=== PATIENT | male | born 1995 | race Caucasian/White ===

== ENCOUNTER 2016-12-28 21:28 | Emergency (ER) | payer BC ==
[2016-12-28 21:37] VITALS: BP 159/97
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
[2016-12-28] MEDS ORDERED: Cyclobenzaprine TAB* 10 MG PO ONE (22:01)
[2016-12-28] MEDS ORDERED: HYDROcodone/ACETAMIN 5-325 MG* 1 TAB PO ONE (22:02)
== END 2016-12-28 22:19 | disposition home or self-care (01) ==
LOC: UCEAST 21:28
DX: M26.609 Unspecified temporomandibular joint disorder, unspecified side (principal); K02.9 Dental caries, unspecified; Z88.1 Allergy status to other antibiotic agents; I10 Essential (primary) hypertension
CPT/HCPCS: 99213; A9270-GY; G0463

== ENCOUNTER 2016-12-31 00:53 | Emergency (ER) | payer BC ==
[2016-12-31] MEDS ORDERED: Penicillin VK TAB* 250 MG PO ONE (01:11)
[2016-12-31] MEDS ORDERED: Ibuprofen TAB* 800 MG PO ONE (01:11)
--- NOTE | 2016-12-31 01:23 | ED ---
Chavez Carpio Anna, scribed for David Batista MD on 12/31/16 at 0113 . Throat Pain/Nasal Congestion - HPI Summary HPI Summary: Patient is a 21 y/o male coming to [facility] presenting with constant left jaw pain that began three days ago. The pain radiates through his tongue, which is different from the pain when seen 12/28/2016 at [facility]. He reports numbness around lips and chin. The pain is exacerbated by swallowing. The patient has taken Tylenol tonight. Patient was seen at [facility] for the same symptoms three days ago, where he was diagnosed with TMJ and dental caries/dental pain and prescribed Flexeril, Lorcet, and Naproxen. He stopped taking this medication when he felt he had a reaction to the Naproxen. 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 - Accompanied by parents - Allergies/Home Medications Allergies/Adverse Reactions: Allergies Allergy/AdvReac Type Severity Reaction Status Date / Time Cefaclor [From [facility]] Allergy Intermediate Rash Verified 12/28/16 21:37 PMH/Surg Hx/FS Hx/Imm Hx Endocrine/Hematology History: Denies: Hx Anticoagulant Therapy, Hx Diabetes, Hx Thyroid Disease Cardiovascular History: Reports: Hx Hypertension Denies: Hx Congestive Heart Failure, Hx Deep Vein Thrombosis, Hx Myocardial Infarction, Hx Pacemaker/ICD Respiratory History: Reports: Hx Asthma - as a child Denies: Hx Chronic Obstructive Pulmonary Disease (COPD), Hx Lung Cancer, Hx Pneumonia, Hx Pulmonary Embolism GI History: Denies: Hx Gall Bladder Disease, Hx Gastrointestinal Bleed, Hx Ulcer, Hx Urosepsis, Other GI Disorders History: Denies: Hx Kidney Stones, Hx Renal Disease Neurological History: Denies: Hx Dementia, Hx Migraine, Hx Seizures, Hx Transient Ischemic Attacks (TIA) Psychiatric History: Reports: Hx Anxiety - He does not take medication for it. Denies: Hx Depression, Hx Schizophrenia, Hx Bipolar Disorder Infectious Disease History: No Infectious Disease History: Denies: History Other Infectious Disease, Traveled Outside the [place] in Last 30 Days - Family History Known Family History: Positive: Hypertension Negative: Cardiac Disease - Social History Alcohol Use: None Substance Use Type: Reports: None Hx Tobacco Use: No Smoking Status (MU): Never Smoked Tobacco Review of Systems Positive: Arthralgia Positive: Numbness All Other Systems Reviewed And Are Negative: Yes Physical Exam Triage Information Reviewed: Yes Vital Signs On Initial Exam: Initial Vitals Temp Pulse Resp BP Pulse Ox 97.8 F 87 16 161/98 100 12/31/16 00:54 12/31/16 00:54 12/31/16 00:54 12/31/16 00:54 12/31/16 00:54 Vital Signs Reviewed: Yes Appearance: Positive: Well-Appearing, No Pain Distress Skin: Positive: Warm Head/Face: Positive: Normal Head/Face Inspection Eyes: Positive: DIANNA ENT: Positive: Hearing grossly normal Dental: Positive: Gross Decay/Caries @ Neck: Positive: Supple Respiratory/Lung Sounds: Positive: Breath Sounds Present Cardiovascular: Positive: RRR Neurological: Positive: Alert, Oriented to Person Place, Time Diagnostics - Vital Signs Vital Signs Temp Pulse Resp BP Pulse Ox 12/31/16 00:54 97.8 F 87 16 161/98 100 - Laboratory Lab Statement: Any lab studies that have been ordered have been reviewed, and results considered in the medical decision making process. Re-Evaluation - Re-Evaluation First Eval Comment: pt advised to continue present tx and f/u with dentist EENT Course/Dx - Course Assessment/Plan: Patient is a 21 y/o male coming to [facility] presenting with constant left jaw pain that began three days ago. The pain radiates through his tongue, which is different from the pain when seen 12/28/2016 at [facility]. He reports numbness around lips and chin. The pain is exacerbated by swallowing. The patient has taken Tylenol tonight. Patient was seen at [facility] for the same symptoms three days ago, where he was diagnosed with TMJ and dental caries/ dental pain and prescribed Flexeril, Lorcet, and Naproxen. He stopped taking this medication when he felt he had a reaction to the Naproxen. Patient was recommended to take ibuprofen as needed for the pain and to continue taking other medications as prescribed at [facility]. Abx prescribed. Patient will be discharged home with the recommendation to follow up with a dentist. - Diagnoses Provider Diagnoses: Pain, dental Discharge - Discharge Plan Condition: Stable Disposition: HOME Prescriptions: Ibuprofen TAB* [Motrin TAB* 600 MG] 600 mg PO Q6H #30 tab Penicillin VK TAB* [Penicillin VK 250 mg Tab*] 250 mg PO QID #20 tab Patient Education Materials: Penicillin V (By mouth), Ibuprofen (By mouth), Toothache (ED) Referrals: Cristino Markham DO [Primary Care Provider] - Rickey Campoverde DMD [Doctor of Dental Medicine] - Additional Instructions: Follow up with dentist within 48 hours. Return to the emergency department for changing or worsening symptoms. The documentation as recorded by the Chavez armstrong Anna accurately reflects the service I personally performed and the decisions made by me, David Batista MD.
[2016-12-31 01:36] VITALS: BP 156/89
== END 2016-12-31 01:35 | disposition home or self-care (01) ==
LOC: ED 00:53
DX: K08.89 Other specified disorders of teeth and supporting structures (principal)
CPT/HCPCS: 99282; A9270-GY

== ENCOUNTER 2017-01-02 20:02 | Inpatient (IN) | payer BC ==
[2017-01-02] MEDS ORDERED: Ketorolac INJ* 30 MG/ML 1 ML VIAL IV ONE (21:44)
[2017-01-02] MEDS ORDERED: NS 0.9% 1000 ML* 1,000 ML IV ONE (21:44)
[2017-01-02 22:31] LABS: Hematocrit 48 % (42-52); Hemoglobin 16.4 g/dl (14.0-18.0); Mean Corpuscular HGB Conc 35 g/dl (31-36); Mean Corpuscular Hemoglobin 30 pg (27-31); Mean Corpuscular Volume 87 fL (80-94); Mean Platelet Volume 8 um3 (7.4-10.4); Red Blood Count 5.46 10^6/ul (4.0-5.4); Red Cell Distribution Width 13 % (10.5-15); White Blood Count 16.5 10^3/ul (3.5-10.8)
[2017-01-02 22:47] LABS: Albumin 4.4 g/dL (3.2-5.2); BUN/Creatinine Ratio 7.5 (8-20); C Reactive Protein 83.34 mg/L (< 5.00); EGFR African American 129.5 (>60); EGFR Non-African American 100.7 (>60); Globulin 3.5 g/dL (2-4); Potassium 4.3 mmol/L (3.5-5.0); Total Bilirubin 1.4 mg/dL (0.2-1.0); Total Protein 7.9 g/dL (6.4-8.9)
[2017-01-02] MEDS ORDERED: Iohexol 300* (CONTRAST) 10 ML SDV IV ONE (23:03)
--- NOTE | 2017-01-02 23:25 | ED ---
Throat Pain/Nasal Congestion - HPI Summary HPI Summary: Patient presents with left sided jaw pain for 5 days and facial swelling that began yesterday. He has had a cracked wisdom tooth for over a year without issue. He has been evaluated at this ED and [facility] with diagnoses of TMJ. He saw his dentist yesterday who gave him antibiotics and pain medication with minimal relief. He presents today with swelling that he feels has progressed into his chest, and pain with swallowing. He has a subjective fever. He has not noticed drainage from the area. No neck stiffness or ear pain. - History of Current Complaint Chief Complaint: EDDentalPain Time Seen by Provider: 01/02/17 21:03 Hx Obtained From: Patient, Family/French Drawer Onset/Duration: Gradual Onset, Lasting Days, Worse Since - yesterday Severity: Severe Associated Signs And Symptoms: Positive: Dysphagia Cough: None - Allergies/Home Medications Allergies/Adverse Reactions: Allergies Allergy/AdvReac Type Severity Reaction Status Date / Time Cefaclor [From Ceclor] Allergy Intermediate Rash Verified 01/02/17 20:15 PMH/Surg Hx/FS Hx/Imm Hx Endocrine/Hematology History: Denies: Hx Anticoagulant Therapy, Hx Diabetes, Hx Thyroid Disease Cardiovascular History: Reports: Hx Hypertension Denies: Hx Congestive Heart Failure, Hx Deep Vein Thrombosis, Hx Myocardial Infarction, Hx Pacemaker/ICD Respiratory History: Reports: Hx Asthma - as a child Denies: Hx Chronic Obstructive Pulmonary Disease (COPD), Hx Lung Cancer, Hx Pneumonia, Hx Pulmonary Embolism GI History: Denies: Hx Gall Bladder Disease, Hx Gastrointestinal Bleed, Hx Ulcer, Hx Urosepsis, Other GI Disorders History: Denies: Hx Kidney Stones, Hx Renal Disease Neurological History: Denies: Hx Dementia, Hx Migraine, Hx Seizures, Hx Transient Ischemic Attacks (TIA) Psychiatric History: Reports: Hx Anxiety - He does not take medication for it. Denies: Hx Depression, Hx Schizophrenia, Hx Bipolar Disorder Infectious Disease History: No Infectious Disease History: Denies: History Other Infectious Disease, Traveled Outside the [place] in Last 30 Days - Family History Known Family History: Positive: Hypertension Negative: Cardiac Disease - Social History Occupation: Employed Full-time Lives: With Family Alcohol Use: None Substance Use Type: Reports: None Hx Tobacco Use: No Smoking Status (MU): Never Smoked Tobacco Review of Systems Positive: Fever, Chills Positive: Sore Throat. Negative: Ear Ache, Nasal Discharge Negative: Cough Negative: Bruising Negative: Headache, Weakness All Other Systems Reviewed And Are Negative: Yes Physical Exam Triage Information Reviewed: Yes Vital Signs On Initial Exam: Initial Vitals Temp Pulse Resp BP Pulse Ox 99.3 F 124 18 161/104 98 01/02/17 20:05 01/02/17 20:05 01/02/17 20:05 01/02/17 20:05 01/02/17 20:05 Vital Signs Reviewed: Yes Appearance: Positive: Well-Appearing, Pain Distress, Obese Skin: Positive: Warm, Skin Color Reflects Adequate Perfusion, Dry, Soft Head/Face: Positive: Normal Head/Face Inspection Eyes: Positive: EOMI, DIANNA, Conjunctiva Clear ENT: Positive: Hearing grossly normal, Pharynx normal, Trismus - mild, Dental tenderness - left upper wisdom tooth. Negative: Pharyngeal erythema, Tonsillar swelling, Tonsillar exudate, Muffled/hoarse voice Dental: Positive: Percussion Tenderness @, Dental Fracture @, Cervical Lymphadenopathy - body habitus is limiting; obvious left sided facial and throat swelling Neck: Positive: Supple, Tenderness @, Enlarged Nodes @ Respiratory/Lung Sounds: Positive: Clear to Auscultation, Breath Sounds Present Cardiovascular: Positive: Tachycardia Musculoskeletal: Negative: Edema Left, Edema Right Neurological: Positive: Sensory/Motor Intact, Alert, Oriented to Person Place, Time, NV Bundle Intact Distally Psychiatric: Positive: Affect/Mood Appropriate AVPU Assessment: Alert Diagnostics - Vital Signs Vital Signs Temp Pulse Resp BP Pulse Ox 01/02/17 20:05 99.3 F 124 18 161/104 98 - Laboratory Lab Results: Lab Results 01/02/17 01/02/17 Range/Units 22:25 22:25 WBC 16.5 H (3.5-10.8) 10^3/ul RBC 5.46 H (4.0-5.4) 10^6/ul Hgb 16.4 (14.0-18.0) g/dl Hct 48 (42-52) % MCV 87 (80-94) fL MCH 30 (27-31) pg MCHC 35 (31-36) g/dl RDW 13 (10.5-15) % Plt Count 273 (150-450) 10^3/ul MPV 8 (7.4-10.4) um3 Neut % (Auto) 70.8 (38-83) % Lymph % (Auto) 18.6 L (25-47) % [place] % (Auto) 8.3 (1-9) % Eos % (Auto) 1.6 (0-6) % Baso % (Auto) 0.7 (0-2) % Absolute Neuts (auto) 11.7 H (1.5-7.7) 10^3/ul Absolute Lymphs (auto) 3.1 (1.0-4.8) 10^3/ul Absolute Monos (auto) 1.4 H (0-0.8) 10^3/ul Absolute Eos (auto) 0.3 (0-0.6) 10^3/ul Absolute Basos (auto) 0.1 (0-0.2) 10^3/ul Absolute Nucleated RBC 0 10^3/ul Nucleated RBC % 0 Sodium 136 (133-145) mmol/L Potassium 4.3 (3.5-5.0) mmol/L Chloride 101 (101-111) mmol/L Carbon Dioxide 25 (22-32) mmol/L Anion Gap 10 (2-11) mmol/L BUN 7 (6-24) mg/dL Creatinine 0.93 (0.67-1.17) mg/dL Est GFR ( Amer) 129.5 (>60) Est GFR (Non-Af Amer) 100.7 (>60) BUN/Creatinine Ratio 7.5 L (8-20) Glucose 112 H (70-100) mg/dL Calcium 10.0 (8.6-10.3) mg/dL Total Bilirubin 1.40 H (0.2-1.0) mg/dL AST 19 (13-39) U/L ALT 52 (7-52) U/L Alkaline Phosphatase 41 (34-104) U/L C-Reactive Protein 83.34 H (< 5.00) mg/L Total Protein 7.9 (6.4-8.9) g/dL Albumin 4.4 (3.2-5.2) g/dL Globulin 3.5 (2-4) g/dL Albumin/Globulin Ratio 1.3 (1-3) Result Diagrams: 01/02/17 22:25 01/02/17 22:25 Lab Statement: Any lab studies that have been ordered have been reviewed, and results considered in the medical decision making process. - CT No standard instances CT Interpretation: Positive (See Comments) CT Interpretation Completed By: Radiologist - No abscess noted: extensive edema in the anterior neck to the level of the cricoid, medially to the left parapharyngeal space, to the left hypopharynx and aryepiglottic fold and base of left tongue. EENT Course/Dx - Course Course Of Treatment: After discussion with ENT and hospital medicine, the patient will be admitted to the ICU for observation and IV antibiotics. The patients childhood rash with cefaclor was discussed with Dr. Seymour and the patient was okayed to receive penicillin due to low cross reactivity. - Differential Diagnoses Differential Diagnoses: Cellulitis, Dental Abscess, Dental Caries, Fractured Tooth, Lg's Angina, Mandibular/Maxillary Trauma, Odontogenic Pain, Periodontic Abscess, Periodontic Disease, Pharyngitis, Post-Extraction Pain, Tonsilitis - Diagnoses Provider Diagnoses: Swelling of throat, Cellulitis - Provider Notifications Discussed Care of Patient with: Dr. Valdez, ENT; Dr. Seymour, hospital medicine. Instructed by Provider To: Admit As Inpatient Discharge - Discharge Plan Condition: Stable Disposition: ADMITTED TO [facility]
[2017-01-02] MEDS ORDERED: Dexamethasone IV* 4 MG/ML 1 ML (4 MG) IV SLOW PU ONE (23:55)
[2017-01-02] MEDS ORDERED: Clindamycin 900 MG IVPREMIX(* 900 MG/50 ML SDV IV ONE (23:55)
[2017-01-03] MEDS ORDERED: HYDROmorphone* 1 MG/ML 1 ML SYR IV SLOW PU ONE (00:40)
--- NOTE | 2017-01-03 00:44 | HP ---
H&P (Free Text) History and Physical: PCP: Gabe Markham MD Date/Time of Evaluation: 01/03/2017 0030 CC: throat pain HPI: Mr Jose Enrique Martines is a 21YO morbidly obese male reporting onset of L inferior jaw pain 5 days ago progressing to pain 2-3 days ago and including subjective F/C yesterday. He was seen in [facility] [place] and prescribed ABX, followed up with dental who changed his ABX, and despite this has continued to worsen to the point today he was starting to have difficulty swallowing prompting him to return. He is able to manage his saliva without difficulty and is having no airway complaint.CT neck soft tissue reveals extensive inflammatory change of the deep space of the neck without abscess formation. PMedHx HTN anxiety PVCs/palpitations Allergies Cefaclor [From Ceclor] Allergy (Intermediate, Verified 01/02/17 20:15) Rash Ambulatory Orders Nursing to reconcile. PSurgHx denies SocHx: no tobacco, alcohol, or recreational drugs; unemployed; full code status FamHx: positive HTN ROS: as above, otherwise reviewed and all were negative Constitutional: NAD, normally developed, morbidly obese white male vitals: Vital Signs Temp 37.4 C 01/02/17 20:05 Pulse 124 01/02/17 20:05 Resp 18 01/03/17 00:53 BP 161/104 01/02/17 20:05 Pulse Ox 98 01/02/17 20:05 Intake & Output 01/02/17 01/02/17 01/03/17 11:59 23:59 11:59 Weight 149.685 kg HEENM: atraumatic; sclera/conjunctiva: non-icteric/clear; hearing: clinically intact; oropharynx: clear, no saida-tonsillar swelling or tenderness, positive poor dentition Neck: soft tissue: tenderness and induration of the L submandibular area tracking into the proximal neck & anterior chest; thyroid: unable to fully examine 2nd tenderness & induration Pulmonary: clear to auscultation bilaterally, good aeration, no accessory muscle use CV: RR/RR, normal S1S2, no carotid bruit, no jugular venous distention, 2+ B DP/ PT, no edema Abdominal: soft, non-distended, non-tender, no rebound/guarding/rigidity, normoactive bowel sounds, no hepatosplenomegaly or masses, no costovertebral angle tenderness Musculoskeletal: general: grossly intact; gait: stable Integumental: normal appearance and texture Psychiatric orientation: AA&O to PPS affect: calm mood: cooperative eye contact: fair content: reliable responses: timely insight: good Testing: Lab Results 01/02/17 01/02/17 Range/Units 22:25 22:25 WBC 16.5 H (3.5-10.8) 10^3/ul RBC 5.46 H (4.0-5.4) 10^6/ul Hgb 16.4 (14.0-18.0) g/dl Hct 48 (42-52) % MCV 87 (80-94) fL MCH 30 (27-31) pg MCHC 35 (31-36) g/dl RDW 13 (10.5-15) % Plt Count 273 (150-450) 10^3/ul MPV 8 (7.4-10.4) um3 Neut % (Auto) 70.8 (38-83) % Lymph % (Auto) 18.6 L (25-47) % [place] % (Auto) 8.3 (1-9) % Eos % (Auto) 1.6 (0-6) % Baso % (Auto) 0.7 (0-2) % Absolute Neuts (auto) 11.7 H (1.5-7.7) 10^3/ul Absolute Lymphs (auto) 3.1 (1.0-4.8) 10^3/ul Absolute Monos (auto) 1.4 H (0-0.8) 10^3/ul Absolute Eos (auto) 0.3 (0-0.6) 10^3/ul Absolute Basos (auto) 0.1 (0-0.2) 10^3/ul Absolute Nucleated RBC 0 10^3/ul Nucleated RBC % 0 Sodium 136 (133-145) mmol/L Potassium 4.3 (3.5-5.0) mmol/L Chloride 101 (101-111) mmol/L Carbon Dioxide 25 (22-32) mmol/L Anion Gap 10 (2-11) mmol/L BUN 7 (6-24) mg/dL Creatinine 0.93 (0.67-1.17) mg/dL Est GFR ( Amer) 129.5 (>60) Est GFR (Non-Af Amer) 100.7 (>60) BUN/Creatinine Ratio 7.5 L (8-20) Glucose 112 H (70-100) mg/dL Calcium 10.0 (8.6-10.3) mg/dL Total Bilirubin 1.40 H (0.2-1.0) mg/dL AST 19 (13-39) U/L ALT 52 (7-52) U/L Alkaline Phosphatase 41 (34-104) U/L C-Reactive Protein 83.34 H (< 5.00) mg/L Total Protein 7.9 (6.4-8.9) g/dL Albumin 4.4 (3.2-5.2) g/dL Globulin 3.5 (2-4) g/dL Albumin/Globulin Ratio 1.3 (1-3) CT soft tissue neck, personally reviewed: FINDINGS: There is infiltration of the fat of the fat of the left submandibular region as well as thickening of the left platysma muscle. This most likely represents cellulitis. The inflammation extends inferiorly in the anterior neck to approximately the level of the cricoid cartilage of the anterior neck. The inflammation also extends medially to involve the left parapharyngeal space and the edema extends along the left hypopharynx and left aryepiglottic fold. There is also thickening of the base of the tongue. Left submandibular lymphadenopathy. The cervical airway is patent. Thyroid gland is normal. Parotid and submandibular glands are unremarkable. Impression: 21M presenting with neck deep tissue infection DIAGNOSIS & PLAN Primary neck deep tissue infection : IV clindamycin & PCN G : IVFs : IV dexamethasone 16mg x1 given in ED : pain control : NPO : ENT aware, not formally consulted : supplemental oxygen : ICU for close monitoring of airway : supportive care Secondary HTN : review meds once reconciled Admission Rational: inpatient for neck deep tissue infection requiring ICU monitoring, IV ABX, & IV steroids DVTp: SCDs Code Status: full
[2017-01-03] MEDS ORDERED: Ondansetron INJ* 2 MG/ML VIAL IV PRN (00:48)
[2017-01-03] MEDS ORDERED: HYDROmorphone* 1 MG/ML 1 ML SYR IV PRN (00:48)
[2017-01-03] MEDS ORDERED: Melatonin (NF) 3 MG TAB PO PRN (00:48)
[2017-01-03] MEDS ORDERED: Acetaminophen TAB* 325 MG PO PRN (00:48)
[2017-01-03] MEDS ORDERED: NS 0.9% 1000 ML* 1,000 ML IV SCH (01:00)
[2017-01-03 05:12] LABS: Hematocrit 46 % (42-52); Hemoglobin 15.6 g/dl (14.0-18.0); Mean Corpuscular HGB Conc 34 g/dl (31-36); Mean Corpuscular Hemoglobin 30 pg (27-31); Mean Corpuscular Volume 87 fL (80-94); Mean Platelet Volume 8 um3 (7.4-10.4); Red Blood Count 5.27 10^6/ul (4.0-5.4); Red Cell Distribution Width 13 % (10.5-15); White Blood Count 12.4 10^3/ul (3.5-10.8)
[2017-01-03 05:23] LABS: BUN/Creatinine Ratio 10.3 (8-20); Calcium 9.5 mg/dL (8.6-10.3); EGFR African American 139.9 (>60); EGFR Non-African American 108.7 (>60); Potassium 3.9 mmol/L (3.5-5.0)
--- NOTE | 2017-01-03 07:51 | RAD ---
HISTORY: Left facial swelling COMPARISONS: None TECHNIQUE: Multiple contiguous axial CT scans were obtained of the head and neck after the administration of nonionic intravenous contrast, with coronal and sagittal multiplanar reformations. FINDINGS: BRAIN AND ORBITS: The visualized brain and orbits are normal. PARANASAL SINUSES: The visualized paranasal sinuses are clear. SALIVARY GLANDS: The parotid glands, submandibular glands, sublingual glands are normal. NASAL CAVITY/NASOPHARYNX: The nasal cavity and nasopharynx are normal. ORAL CAVITY/OROPHARYNX: There is edema of the buccal space, with partial effacement of the left vallecula, further described below. LARYNGEAL APPARATUS/HYPOPHARYNX: There is parapharyngeal edema, left further described below UPPER AIRWAY/UPPER ESOPHAGUS: The visualized upper airway and esophagus are normal. LUNG APICES: The lung apices are clear. THYROID GLAND: The thyroid gland is normal. LYMPH NODES: There is no lymphadenopathy by size criteria. VASCULATURE: The vasculature is unremarkable. BONES AND SOFT TISSUES: There is straightening of the subcutaneous fat along the left mandible with edema of the left mandibular space, thecal space, and paratracheal space with minimal mass effect upon the oropharynx and supraglottic larynx. The airway is patent. The edema extends along the subcutaneous soft tissue anteriorly to the level of the sternoclavicular notch. There is questionable stranding of the anterior mediastinal fat. There is no loculated fluid collection to suggest abscess. OTHER: None. IMPRESSION: THERE IS INFLAMMATORY CHANGE OF THE LEFT LOWER FACE AND NECK WITH MINIMAL MASS EFFECT UPON THE OROPHARYNX AND SUPRAGLOTTIC LARYNX. THE AIRWAY IS PATENT. THE APPEARANCE IS SUGGESTIVE OF CELLULITIS GIVEN THE CLINICAL HISTORY. THERE IS NO LOCULATED FLUID COLLECTION TO SUGGEST ABSCESS.
[2017-01-03] MEDS ORDERED: Clindamycin 900 MG IVPREMIX(* 900 MG/50 ML SDV IV SCH (08:00)
--- NOTE | 2017-01-03 08:29 | PN ---
Subjective Date of Service: 01/03/17 Interval History: Patient seen this morning with mother at bedside. Reports improvement today, states pain is gone and swelling has improved. No further swelling in the chest , still some in the neck. Able to open his mouth a bit wider today. No fever. Family History: Unchanged from Admission Social History: Unchanged from Admission Past Medical History: Unchanged from Admission Objective Active Medications: Acetaminophen (Tylenol Tab*) 650 mg PO Q6H PRN Hydromorphone HCl (Dilaudid Iv*) 1 mg IV Q2H PRN Penicillin G Potassium 4,000, (000 units/ Sodium Chloride) 100 mls @ 200 mls/ hr IVPB Q4H NAKIA Clindamycin HCl/Dextrose (Cleocin 900 Mg/50 Ml(*)) 50 mls @ 100 mls/hr IVPB Q8H NAKIA Ketorolac Tromethamine (Toradol Inj*) 15 mg IV Q6H PRN Melatonin (Melatonin (Nf)) 3 mg PO BEDTIME PRN; Protocol Ondansetron HCl (Zofran Inj*) 4 mg IV Q6H PRN Pantoprazole Sodium (Protonix Iv*) 40 mg IV DAILY [facility] Vital Signs 01/03/17 01/03/17 01/03/17 00:38 00:53 01:49 Temperature 97.3 F 98 F Pulse Rate 102 110 Respiratory 16 18 20 Rate Blood Pressure 161/77 136/98 (mmHg) O2 Sat by Pulse 98 96 Oximetry 01/03/17 01/03/17 01/03/17 06:00 07:00 08:00 Temperature Pulse Rate 91 96 101 Respiratory 18 18 19 Rate Blood Pressure 130/64 133/61 (mmHg) O2 Sat by Pulse 94 95 97 Oximetry Oxygen Devices in Use Now: None Appearance: Obese, young, M, sitting in chair in NAD Eyes: No Scleral Icterus Ears/Nose/Mouth/Throat: Mucous Membranes Moist, - - Cracked L lower molar, no erythema or swelling in the mouth, some mild swelling on outer L jaw and neck, reports mild TTP Neck: NL Appearance and Movements; NL JVP Respiratory: Symmetrical Chest Expansion and Respiratory Effort, Clear to Auscultation Cardiovascular: NL Sounds; No Murmurs; No JVD, RRR Abdominal: NL Sounds; No Tenderness; No Distention Lymphatic: No Cervical Adenopathy Extremities: No Edema Skin: No Rash or Ulcers Neurological: Alert and Oriented x 3 Result Diagrams: 01/03/17 05:00 01/03/17 05:00 Assess/Plan/Problems-Billing Assessment: Neck infection/cellulitis in a 21 yo M with hx of HTN, anxiety - Patient Problems (1) Neck infection Current Visit: Yes Comment: Improving. CT shows no evidence of abscess. Continue IV Clinda/PCN. Will continue Decadron 2 mg BID. No need for ENT consult at this point. Continue analgesia prn (2) HTN (hypertension) Current Visit: Yes Comment: Hold home Losartan-HCTZ for now (3) DVT prophylaxis Current Visit: Yes Comment: SCDs Status and Disposition: Inpatient for IV Abx. Transfer to medical floor.
[2017-01-03] MEDS: Clindamycin 900 MG/D5W BAG(*) 50 ML IVPB SCH ×3 (08:42→23:45)
[2017-01-03] MEDS ORDERED: Pantoprazole IV* 40 MG IV SCH (09:00)
[2017-01-03] MEDS: Dexamethasone TAB* 1 MG PO SCH ×2 (09:39→22:36)
[2017-01-03] MEDS ORDERED: ALPRAZolam TAB* 0.25 MG PO PRN (14:10)
[2017-01-03] MEDS: Losartan TAB* 25 MG PO SCH (17:40)
--- NOTE | 2017-01-03 20:35 | CONS ---
CONSULTATION REPORT: DATE OF CONSULT: 01/03/17 REASON FOR CONSULTATION: Deep neck cellulitis. REQUESTING CONSULT: Hospitalist. HISTORY: I got called from the emergency room last night initially about this gentleman with facial swelling and a CAT scan that showed he had some pharyngeal swelling as well. He had a cracked tooth and that seemed to be the source of infection. He was admitted for intravenous antibiotics, clindamycin and penicillin was recommended. I saw him today, he is feeling better. He said he saw dentistry actually about this previously and was told to see oral surgery, but he had not done that yet. He is feeling better this morning with just a little bit of swelling left, swallowing better and decreased trismus. PHYSICAL EXAMINATION: On physical examination, no significant swelling appreciate, but he has a full lugo. His neck is soft, but he does have some tenderness. He is able to open his mouth. He does have some inflammation around the third molar on the left lower which apparently is the cracked tooth. The CAT scan showed some edema, but no abscess formation. ASSESSMENT: The patient had a deep neck cellulitis secondary to a dental infection. RECOMMENDATION: Continue the IV antibiotics, completely stable discharge on oral antibiotics. I have called Dr. Barker' office, who is second time worker for oral surgery about a consult either in house or with discharge. [id number]/[facility] #: [id number] RUDOLPH
[2017-01-04] MEDS ORDERED: hydrALAZINE IV* 20 MG/ML VIAL IV PRN (00:10)
[2017-01-04] MEDS: Ketorolac INJ* 15 MG/ML 1 ML VIAL IV PRN ×2 (01:42→15:40)
[2017-01-04 05:56] LABS: Hematocrit 44 % (42-52); Hemoglobin 14.9 g/dl (14.0-18.0); Mean Corpuscular HGB Conc 34 g/dl (31-36); Mean Corpuscular Hemoglobin 30 pg (27-31); Mean Corpuscular Volume 88 fL (80-94); Mean Platelet Volume 8 um3 (7.4-10.4); Red Blood Count 4.94 10^6/ul (4.0-5.4); Red Cell Distribution Width 13 % (10.5-15); White Blood Count 13.3 10^3/ul (3.5-10.8)
[2017-01-04] MEDS ORDERED: Chlorhexidine MOUTHWASH 0.12%* 15 ML UDC SWISH SPIT ONE (07:00)
[2017-01-04] MEDS ORDERED: Gelfoam Sponge SIZE 100* SPONGE ONE (07:10)
[2017-01-04] MEDS ORDERED: Collagen Hemostat* 1 SPONGE/70Mm X 35Mm ONE (07:10)
[2017-01-04] MEDS ORDERED: Bupivacaine 0.5% W/EPI SDV* 30 ML VIAL ONE (07:10)
[2017-01-04] MEDS ORDERED: Chlorhexidine MW 0.12% 473ML* STOCK BOTTLE * USE UNIT DOSE ONE (07:10)
[2017-01-04] MEDS ORDERED: HYDROmorphone* 1 MG/ML 1 ML SYR ONE (07:18)
[2017-01-04] MEDS ORDERED: KETAMINE HCL* 50 MG/ML 10 ML VIAL ONE (07:19)
[2017-01-04] MEDS ORDERED: fentaNYL* 50 MCG/ML 2 ML VIAL (100 MCG VIAL) ONE ×3 (07:19→08:51)
[2017-01-04] MEDS ORDERED: Midazolam* 1 MG/ML 5 ML VIAL (5 MG) ONE (07:20)
[2017-01-04] MEDS ORDERED: Lidocaine 4% TOPICAL* 50 ML TOP.SOLN ONE (07:22)
[2017-01-04] MEDS ORDERED: Lidocaine 2% JELLY* 6 ML JELLY TOPICAL ONE ×2 (07:23→07:28)
[2017-01-04] MEDS ORDERED: Dexamethasone IV* 4 MG/ML 1 ML (4 MG) ONE (07:30)
[2017-01-04] MEDS ORDERED: Famotidine IV* 10 MG/ML 2 ML (20 mg) ONE (07:30)
[2017-01-04] MEDS ORDERED: Ondansetron INJ* 2 MG/ML VIAL IV PRN (09:11)
[2017-01-04] MEDS ORDERED: PROCHLORPERAZINE INJ 5 MG/ML 2 ML VIAL IV PRN (09:11)
[2017-01-04] MEDS ORDERED: DiMENhydriNATE IV* 50 MG/ML VIAL IV PUSH PRN (09:11)
[2017-01-04] MEDS ORDERED: fentaNYL* 50 MCG/ML 2 ML VIAL (100 MCG VIAL) IV PRN (09:11)
[2017-01-04] MEDS: Losartan TAB* 25 MG PO SCH (10:34)
[2017-01-04] MEDS: Clindamycin 900 MG/D5W BAG(*) 50 ML IVPB SCH ×2 (10:34→18:02)
[2017-01-04] MEDS: Hydrochlorothiazide TAB* 25 MG PO SCH (10:37)
[2017-01-04] MEDS: Dexamethasone TAB* 1 MG PO SCH (10:37)
[2017-01-04] MEDS: Chlorhexidine MOUTHWASH 0.12%* 15 ML UDC SWISH SPIT SCH ×3 (12:12→22:57)
--- NOTE | 2017-01-04 12:14 | PN ---
Subjective Date of Service: 01/04/17 Interval History: Patient seen this morning after surgery. He is still a bit sedated from medications but has no complaints. No fever or chills. Family History: Unchanged from Admission Social History: Unchanged from Admission Past Medical History: Unchanged from Admission Objective Active Medications: Acetaminophen (Tylenol Tab*) 650 mg PO Q6H PRN Alprazolam (Xanax Tab*) 0.25 mg PO Q8H PRN Chlorhexidine Gluconate (Peridex Mouth Wash 0.12%*) 15 ml SWISH SPIT TID NAKIA Dexamethasone (Decadron Tab*) 2 mg PO BID NAKIA Dimenhydrinate (Dramamine Iv*) 25 mg IV PUSH ONCE PRN Fentanyl Citrate (Fentanyl*) 50 mcg IV Q2M PRN Hydralazine HCl (Apresoline Iv*) 10 mg IV Q4H PRN Hydrochlorothiazide (Hydrodiuril Tab*) 12.5 mg PO DAILY NAKIA Hydromorphone HCl (Dilaudid Iv*) 1 mg IV Q2H PRN Penicillin G Potassium 4,000, (000 units/ Sodium Chloride) 100 mls @ 200 mls/ hr IVPB Q4H NAKIA Clindamycin HCl/Dextrose (Cleocin 900 Mg/50 Ml(*)) 50 mls @ 100 mls/hr IVPB 0200,1000,1800 NAKIA Ketorolac Tromethamine (Toradol Inj*) 15 mg IV Q6H PRN Losartan Potassium (Cozaar Tab*) 50 mg PO DAILY NAKIA Melatonin (Melatonin (Nf)) 3 mg PO BEDTIME PRN; Protocol Ondansetron HCl (Zofran Inj*) 4 mg IV Q6H PRN Ondansetron HCl (Zofran Inj*) 4 mg IV ONCE PRN Prochlorperazine Edisylate (Compazine Inj*) 5 mg IV ONCE PRN Vital Signs 01/03/17 01/03/17 01/03/17 12:49 15:27 16:00 Temperature 98.0 F Pulse Rate 116 Respiratory 18 17 Rate Blood Pressure 178/80 (mmHg) O2 Sat by Pulse 100 99 Oximetry 01/03/17 01/03/17 01/03/17 16:58 18:44 20:00 Temperature Pulse Rate Respiratory 18 16 Rate Blood Pressure (mmHg) O2 Sat by Pulse 99 Oximetry 01/04/17 10:14 Temperature 98.9 F Pulse Rate 89 Respiratory 16 Rate Blood Pressure 154/84 (mmHg) O2 Sat by Pulse 94 Oximetry Oxygen Devices in Use Now: None Appearance: Young, obese, M, laying in bed in NAD Eyes: No Scleral Icterus Ears/Nose/Mouth/Throat: - - Dry MM wth dried blood, blood soaked gauze hanging out of mouth Neck: NL Appearance and Movements; NL JVP Respiratory: Symmetrical Chest Expansion and Respiratory Effort, Clear to Auscultation Cardiovascular: NL Sounds; No Murmurs; No JVD, RRR Abdominal: NL Sounds; No Tenderness; No Distention Lymphatic: No Cervical Adenopathy Extremities: No Edema Skin: No Rash or Ulcers Neurological: Alert and Oriented x 3 Result Diagrams: 01/04/17 05:34 01/03/17 05:00 Additional Lab and Data: Assess/Plan/Problems-Billing Assessment: Neck infection/cellulitis in a 21 yo M with hx of HTN, anxiety - Patient Problems (1) Neck infection Current Visit: Yes Comment: Appreciate ENT and OMFS assistance. S/P tooth (#17 ) extraction and I&D by Dr. Stover on 01/04. Continue IV Clinda/PCN for 24 hours. Stop decadron. Continue analgesia prn (2) HTN (hypertension) Current Visit: Yes Comment: Continue Losartan-HCTZ (3) DVT prophylaxis Current Visit: Yes Comment: SCDs Status and Disposition: Inpatient for IV Abx. D/C 01/05
[2017-01-04] MEDS: Phenol 1.4% Spray* 177 ML BTL MT PRN (22:56)
[2017-01-05] MEDS: Clindamycin 900 MG/D5W BAG(*) 50 ML IVPB SCH (02:40)
[2017-01-05 07:03] LABS: Hematocrit 42 % (42-52); Hemoglobin 13.8 g/dl (14.0-18.0); Mean Corpuscular HGB Conc 33 g/dl (31-36); Mean Corpuscular Hemoglobin 30 pg (27-31); Mean Corpuscular Volume 89 fL (80-94); Mean Platelet Volume 8 um3 (7.4-10.4); Red Blood Count 4.66 10^6/ul (4.0-5.4); Red Cell Distribution Width 13 % (10.5-15); White Blood Count 12.8 10^3/ul (3.5-10.8)
--- NOTE | 2017-01-05 07:40 | DCNOTE ---
Patient seen this morning. Feels well aside from some throat pain. Denies fever/ chills. Has been eating. On exam, RRR, s1 and s2 present, no m/g/r, abd soft, NTND, BS+, extraction site appears to be healing well, no bleeding, some posterior OP erythema Discharge home today. Dr. Barker has sent pain medications and ABx to pharmacy. He will f/u with patient .
[2017-01-05 08:07] VITALS: BP 123/70
[2017-01-05] MEDS: Hydrochlorothiazide TAB* 25 MG PO SCH (08:11)
[2017-01-05] MEDS: Chlorhexidine MOUTHWASH 0.12%* 15 ML UDC SWISH SPIT SCH (08:12)
[2017-01-05] MEDS: Losartan TAB* 25 MG PO SCH (08:12)
[2017-01-05] MEDS: Phenol 1.4% Spray* 177 ML BTL MT PRN (08:12)
[2017-01-05] MEDS ORDERED: Pneumococcal Vac Polyvalent* 0.5 ML VIAL IM ONE (09:00)
[2017-01-05] MEDS ORDERED: Influenza VAC *QUAD* 2016-17* 0.5 ML SYRINGE IM ONE (09:00)
--- NOTE | 2017-01-06 05:08 | DS ---
DISCHARGE SUMMARY: DATE OF ADMISSION: 01/03/17 DATE OF DISCHARGE: 01/05/17 PRIMARY CARE PHYSICIAN: Dr. Cristino Markham. PRINCIPAL DISCHARGE DIAGNOSES: 1. Deep neck infection/cellulitis. 2. Broken tooth. SECONDARY DIAGNOSES: 1. Hypertension. 2. Anxiety. CONSULTANTS DURING HOSPITALIZATION: 1. Dr. Segundo Valdez, E[place]. 2. [place] Sven [place] [facility] [place] MEDICATION REGIMEN: 1. Losartan/hydrochlorothiazide 50/12.5 one tablet by mouth daily. 2. Melatonin 1 mg by mouth at bedtime. 3. Antibiotics ordered by Dr. Barker. HISTORY OF PRESENT ILLNESS AND HOSPITAL SUMMARY: Please see the full history and physical by Dr. Wiliam Reece for full details. Briefly, Mr. Jose Enrique Martines is a 21-year-old man who presented to the hospital with worsening jaw pain, swelling, despite outpatient antibiotic therapy. He underwent a CT of the neck that showed some inflammatory changes on the deep spaces of the neck, however, no abscesses. The patient was started on IV antibiotics and IV steroids. He was transferred to the ICU for closer watch but had no compromised airway. He was transitioned to oral steroids for an additional day and transferred to the floor. He was seen by ENT and subsequently Dr. Barker took him to the OR on 01/04/17 for extraction of a cracked left lower jaw tooth #17. The patient tolerated the procedure well. He was continued on an additional 24 hours of IV antibiotics and will be discharged home on oral antibiotics as per Dr. Barker and will follow up with him in the clinic. STUDIES DONE DURING THIS HOSPITALIZATION: CT soft tissue of the neck with contrast, impression: There is inflammatory change in the left lower face and neck with minimal mass effect upon the oropharynx and supraglottic larynx. The airway is patent. The appearance is suggestive of cellulitis. Given the clinical history, there is no loculated fluid collection to suggest abscess. TIME SPENT: Total time spent on this discharge 35 minutes. This is summary of hospitalization. Please see the full medical record for further details. CC: Dr. Cristino Markham* [id number]/[facility] #: [id number] MTDD
--- NOTE | 2017-01-08 23:44 | OP ---
DATE OF OPERATION: 01/04/17 - ROOM #406 DATE OF : 89 SURGEON: Sven Barker MD, DMD ANESTHESIOLOGIST: Paul Arnett MD ANESTHESIA: Local, MAC. PRE-OP DIAGNOSIS: Neck and jaw abscess secondary to odontogenic source, tooth # 17. POST-OP DIAGNOSIS: Neck and jaw abscess secondary to odontogenic source, tooth #17. OPERATIVE PROCEDURE: Surgical removal of tooth #17. INDICATIONS: The patient is a 21-year-old male with an anxiety disorder, obesity and above-noted diagnosis. The patient had been on IV antibiotics for a few days and his swelling significantly decreased and his trismus decreased. Having discussed full range of treatment options, alternatives, advantages, and disadvantages of each, and potential risks and complications with the patient and his mother, he wished to proceed. The plan was for general anesthesia. Dr. Arnett planned on an awake intubation because of some limited jaw opening. The patient was sedated and given some ketamine; and after multiple attempts, it was decided that it would be unsafe to proceed further in trying to get the patient intubated as Dr. Arnett was able to get the endotracheal tube through the vocal cords, but the tube would not advance. It was then decided to perform the procedure with intravenous sedation and more ketamine as the patient was being very cooperative. DESCRIPTION OF PROCEDURE: After what was described above and the prepping and draping of the patient in a standard fashion for an oral surgical procedure and the universal protocol time-out procedure being completed, attention was directed intraorally where 6 cc of 0.5% Marcaine with 1:200,000 epinephrine was infiltrated as a left mandibular block and local infiltration. Incision was made with a 15 blade, a #9 elevator was used for mucoperiosteal elevation and elevator was used to elevate tooth #17. A thorough irrigation with Peridex was completed and a piece of Gelfoam was placed to help with hemostasis. Excellent hemostasis was noted and the patient was stable and breathing spontaneously. He was transferred to the postanesthesia care unit, awake, stable and sedated with no bleeding. All sponge and needle counts were correct at the end of the procedure. No specimen was required per protocol. Estimated blood loss for the procedure was less than 5 cc. [id number]/[facility] #: [id number] [facility]
== END 2017-01-05 09:00 | disposition home or self-care (01) | DRG 383 ==
LOC: ED 20:02 → ICU 01-03 00:36 → MED 01-03 10:26
PROVIDERS: ADMIT Hospitalist; ATTEND Hospitalist
PROC: 0CTW0Z0 Resection of Upper Tooth, Single, Open Approach (ICD-10-PCS; principal; 2017-01-04 07:45)
DX: L03.221 Cellulitis of neck (principal); Z68.41 Body mass index [BMI] 40.0-44.9, adult; I10 Essential (primary) hypertension; S02.5XXA Fracture of tooth (traumatic), initial encounter for closed fracture; X58.XXXA Exposure to other specified factors, initial encounter; Y92.9 Unspecified place or not applicable; R59.1 Generalized enlarged lymph nodes; F41.9 Anxiety disorder, unspecified; E66.01 Morbid (severe) obesity due to excess calories; Z82.49 Family history of ischemic heart disease and other diseases of the circulatory system
CPT/HCPCS: 36415; 70491; 80048; 80053; 85025; 86140; A9270-GY; J0360; J1100; J1170; J1885; J2250; J2405; J3010; Q9967

== ENCOUNTER 2019-09-16 19:11 | Emergency (ER) | payer BC, MEDICAID ==
--- NOTE | 2019-09-16 19:26 | UC ---
General HPI - HPI Summary HPI Summary: PATIENT ARRIVES WITH INCREASING FREQUENCY OF LEFT ANTERIOR CHEST PAIN AND PALPITATIONS. NO RADIATION TO ARMS OR NECK OR BACK. HAS BEEN OUT OF HIS BLOOD PRESSURE MEDICATION FOR OVER A MONTH HIS INSURANCE WILL NOT COVER THE COMBINATION HYZAAR. HE IS FEELING OVERALL UNWELL/ANXIOUS AND COMPLAINS OF HEARING HIS HEART BEAT IN HIS HEAD. IS HERE ACCOMPANIED BY MOM. - History of Current Complaint Chief Complaint: UCGeneralIllness Stated Complaint: POSS HIGH BP Time Seen by Provider: 09/16/19 19:16 Hx Obtained From: Patient Onset/Duration: Gradual Onset, Lasting Weeks, Still Present Onset Severity: Moderate Current Severity: Moderate Pain Intensity: 0 Associated Signs & Symptoms: Positive: Chest Pain, Dizziness, Palpitations - Allergy/Home Medications Allergies/Adverse Reactions: Allergies Allergy/AdvReac Type Severity Reaction Status Date / Time cefaclor [From [facility]] Allergy Rash Verified 09/16/19 19:22 PMH/Surg Hx/FS Hx/Imm Hx Cardiovascular History: Hypertension Respiratory History: Asthma Psychological History: Anxiety Other History Of: Negative For: HIV, Hepatitis B, Hepatitis C, Anticoagulant Therapy - Surgical History Surgical History: None - Family History Known Family History: Positive: Hypertension Negative: Cardiac Disease - Social History Alcohol Use: None Substance Use Type: None Smoking Status (MU): Never Smoked Tobacco Household Exposure Type: Cigarettes - Immunization History Most Recent Influenza Vaccination: fall 2015 Most Recent Tetanus Shot: unk Most Recent Pneumonia Vaccination: unk Review of Systems All Other Systems Reviewed And Are Negative: Yes Constitutional: Positive: Negative Respiratory: Positive: Negative Cardiovascular: Positive: Palpitations, Chest Pain Gastrointestinal: Positive: Negative Neurological: Positive: Other - DIZZY Physical Exam Triage Information Reviewed: Yes Appearance: No Pain Distress, Well-Nourished, Other: - SLIGHTLY PALE Vital Signs: Initial Vital Signs Temp 98.7 F 09/16/19 19:17 Pulse 89 09/16/19 19:17 Resp 16 09/16/19 19:17 BP 176/93 09/16/19 19:17 Pulse Ox 98 09/16/19 19:17 Laboratory Tests 09/16/19 20:01 POC Urine Color Yellow POC Urine Clarity Clear POC Urine pH 7.0 POC Ur Specif Superior 1.020 POC Urine Protein Trace A POC Ur Glucose (UA) Negative POC Urine Ketones Negative POC Urine Blood Negative POC Urine Nitrite Negative POC Urine Bilirubin Negative POC Urine Urobilinogen >=8.0 A POC U Leukocyte Esteras Negative Vital Signs Reviewed: Yes Eyes: Positive: Conjunctiva Clear ENT: Positive: Hearing grossly normal, Pharynx normal, TMs normal Neck: Positive: Supple, Nontender, No Lymphadenopathy Respiratory Exam: Normal Cardiovascular Exam: Normal Cardiovascular: Positive: Other: - NO CAROTID BRUITS Abdomen Description: Positive: Nontender, Soft Musculoskeletal: Positive: No Edema Neurological: Positive: Alert Psychological: Positive: Normal Response To Family, Age Appropriate Behavior Skin: Negative: Rashes Diagnostics - EKG Cardiac Rate: NL - 97BPM Cardiac Rhythm: Sinus: Normal Ectopy: None ST Segment: Normal Course/Dx - Course Course Of Treatment: PATIENT ARRIVES WITH INCREASING FREQUENCY OF EPISODES OF LEFT-SIDED CHEST PAIN IN THE SETTING OF UNCONTROLLED HYPERTENSION. ALSO COMPLAINS OF OVERALL MALAISE. STATES HE CAN HEAR HIS HEART BEATING IN HIS HEAD. TRACE PROTEIN ON URINE DIP TODAY. PATIENT REQUIRES HIGHER LEVEL OF SERVICE THAN WHAT IS AVAILABLE IN THE URGENT CARE. TO [facility] BY AMBULANCE. - Diagnoses Provider Diagnosis: Uncontrolled hypertension, Chest pain - Physician Notifications Discussed Patient Care With: Lauri Myers - TO [facility] BY AMBULANCE Time Discussed With Above Provider: 19:50 Instructed by Provider To: MD Will See In ED Discharge ED - Sign-Out/Discharge Documenting (check all that apply): Patient Departure All imaging exams completed and their final reports reviewed: No Studies - Discharge Plan Condition: Stable Disposition: TRANS HIGHER LVL OF CARE FAC Referrals: Cristino Markham DO [Primary Care Provider] - - Billing Disposition and Condition Condition: STABLE Disposition: Trans Higher Lvl of Care Fac
[2019-09-16 20:07] VITALS: BP 171/82
== END 2019-09-16 20:13 | disposition short-term general hospital (02) ==
LOC: UCEAST 19:11
DX: R07.89 Other chest pain (principal); I10 Essential (primary) hypertension; J45.909 Unspecified asthma, uncomplicated; R42 Dizziness and giddiness; R00.2 Palpitations; Z88.0 Allergy status to penicillin
CPT/HCPCS: 81003; 93005; 99213; G0463

== ENCOUNTER 2019-09-16 20:29 | Emergency (ER) | payer MEDICAID ==
--- NOTE | 2019-09-16 20:41 | ED ---
Hypertension - HPI Summary HPI Summary: Patient is a 24 y/o M presenting to the ED via EMS for a chief complaint of asymptomatic hypertension. Patient is present with his mother. Patient is arriving from Urgent Care where he was seen for pressure in his ears and a general feeling of being unwell. He also admits intermittent chest pain, episodes of near syncope, and "feeling his heart beat." He states that around 15 :30, he stood up suddenly and felt pressure in his ears with a near syncopal episode. He has had syncopal episodes in the past after a position change. Patient currently feels anxious about his visit to the ED. PMHx is significant for anxiety, PVC, and HTN. PSHx is significant for tooth removal. Recently, the patient lost his health insurance and has been unable to refill his HTN medication for the last 1 months. Patient denies alcohol, tobacco, or drug use. Allergies noted. Medications reviewed. - History of Current Complaint Stated Complaint: HYPERTENSION PER EMS Time Seen by Provider: 09/16/19 20:30 Hx Obtained From: Patient Onset/Duration: Started Hours Ago, Atraumatic, Still Present Timing: Constant Aggravating Factor(s): Nothing Alleviating Factor(s): Nothing Associated Signs & Symptoms: Chest Pain - Intermittent, Anxiety/Stress, Other: - Positive near syncope - Allergies/Home Medications Allergies/Adverse Reactions: Allergies Allergy/AdvReac Type Severity Reaction Status Date / Time cefaclor [From [facility]] Allergy Rash Verified 09/16/19 19:22 PMH/Surg Hx/FS Hx/Imm Hx Previously Healthy: Yes Endocrine/Hematology History: Denies: Hx Anticoagulant Therapy, Hx Diabetes, Hx Thyroid Disease Cardiovascular History: Reports: Hx Hypertension, Other Cardiovascular Problems/ Disorders - pvc Denies: Hx Congestive Heart Failure, Hx Deep Vein Thrombosis, Hx Myocardial Infarction, Hx Pacemaker/ICD Respiratory History: Reports: Hx Asthma - as a child Denies: Hx Chronic Obstructive Pulmonary Disease (COPD), Hx Lung Cancer, Hx Pneumonia, Hx Pulmonary Embolism GI History: Denies: Hx Gall Bladder Disease, Hx Gastrointestinal Bleed, Hx Ulcer, Hx Urosepsis, Other GI Disorders History: Denies: Hx Kidney Stones, Hx Renal Disease Sensory History: Denies: Hx Legally Blind, Hx Deafness Opthamlomology History: Denies: Hx Legally Blind EENT History: Denies: Hx Deafness Neurological History: Denies: Hx Dementia, Hx Migraine, Hx Seizures, Hx Transient Ischemic Attacks (TIA) Psychiatric History: Reports: Hx Anxiety - He does not take medication for it. Denies: Hx Depression, Hx Schizophrenia, Hx Bipolar Disorder - Surgical History Surgical History: Yes Surgery Procedure, Year, and Place: Tooth surgery Infectious Disease History: No Infectious Disease History: Denies: History Other Infectious Disease - Family History Known Family History: Positive: Hypertension Negative: Cardiac Disease - Social History Occupation: Employed Full-time Lives: With Family Alcohol Use: None Hx Substance Use: No Substance Use Type: Reports: None Hx Tobacco Use: No Smoking Status (MU): Never Smoked Tobacco Review of Systems Positive: Other - Positive ear pressure Positive: Chest Pain - Intermittent, Other - Positive hypertension Positive: Other - Positive hypertension Neurological: Other - Positive near syncope Positive: Anxious All Other Systems Reviewed And Are Negative: Yes Physical Exam - Summary Physical Exam Summary: Constitutional: Well-developed, Well-nourished, Alert. (-) Distressed. Appears mildly anxious. Skin: Warm, Dry HENT: Normocephalic; Atraumatic Eyes: Conjunctiva normal Neck: Musculoskeletal ROM normal neck. (-) JVD, (-) Stridor, (-) Tracheal deviation Cardio: Rhythm regular, Heart sounds normal; Intact distal pulses; Radial pulses are 2+ and symmetric. (-) Murmur. Tachycardic. Pulmonary/Chest wall: Effort normal. (-) Respiratory distress, (-) Wheezes, (-) Rales Abd: Soft, (-) tenderness, (-) Distension, (-) Guarding, (-) Rebound Musculoskeletal: (-) Edema Lymph: (-) Cervical adenopathy Neuro: Alert, Oriented x3 Psych: Mood and affect Normal Triage Information Reviewed: Yes Vital Signs Reviewed: Yes Procedures - Sedation Patient Received Moderate/Deep Sedation with Procedure: No Diagnostics - Laboratory Result Diagrams: 09/16/19 20:57 09/16/19 20:57 Lab Statement: Any lab studies that have been ordered have been reviewed, and results considered in the medical decision making process. - EKG 20:57 Cardiac Rate: NL - 88 BPM EKG Rhythm: Sinus Rhythm ST Segment: Normal Ectopy: None Summary of EKG Findings: EKG at 20:57 reveals 88 BPM with normal sinus rhythm, no STEMI. Reviewed and interpreted by Dr. Lucero. Hypertension Course/Dx - Course Course Of Treatment: Patient is here with hypertension secondary to not being on his medications. Patient was having insurance issues which does reason he is noncompliant. Patient does have some vague fullness in his ears. Patient was sent here for further evaluation. Patient had a EKG which was grossly unremarkable. Patient had negative troponin and BMP. Patient was restarted on his medicines he is on before. Patient was given a good Rx coupon for his prescription. Patient is in the process of getting insurance - Diagnoses Provider Diagnoses: Hypertension Discharge ED - Sign-Out/Discharge Documenting (check all that apply): Patient Departure - Discharge - Discharge Plan Condition: Stable Disposition: HOME Prescriptions: Hydrochlorothiazide TAB* [Hydrodiuril TAB*] 12.5 mg PO DAILY 30 Days #15 tab Losartan TAB* [Cozaar TAB*] 50 mg PO DAILY 30 Days #60 tab Patient Education Materials: Hypertension (ED) Referrals: Cristino Markham DO [Primary Care Provider] - Additional Instructions: Follow up with your primary care provider in 1-3 days. Return to the Emergency Department if your have chest pain, trouble breathing, weakness on one side of your body, or any other concerning symptoms. Fill your prescriptions with the coupon you were given. - Billing Disposition and Condition Condition: STABLE Disposition: Home - Attestation Statements Document Initiated by Ced: Yes Documenting Chesteribe: Bria Hough Provider For Whom Ced is Documenting (Include Credential): Joaquin Lucero MD Scribe Attestation: Bria Carpio, scribed for Joaquin Lucero MD on 09/19/19 at 0915. Scribe Documentation Reviewed: Yes Provider Attestation: The documentation as recorded by the Bria armstrong accurately reflects the service I personally performed and the decisions made by me, Joaquin Lucero MD Status of Scribe Document: Viewed
[2019-09-16 21:05] LABS: ABS Basophils 0.1 10^3/ul (0-0.2); ABS Eosinophils 0.5 10^3/ul (0-0.6); ABS Monocytes 0.6 10^3/ul (0-0.8); ABS Neutrophils 5.5 10^3/ul (1.5-7.7); Eosinophil % 5.6 %; Hematocrit 46 % (42-52); Hemoglobin 16.5 g/dL (14.0-18.0); Lymphocyte % 23.3 %; Mean Corpuscular HGB Conc 36 g/dL (31-36); Mean Corpuscular Hemoglobin 31 pg (27-31); Mean Corpuscular Volume 88 fL (80-94); Mean Platelet Volume 8.1 fL (7.4-10.4); Platelet Count 204 10^3/uL (150-450); Red Blood Count 5.26 10^6 /uL (4.18-5.48); Red Cell Distribution Width 13 % (10-15); White Blood Count 8.7 10^3/uL (3.5-10.8)
[2019-09-16 21:23] LABS: BUN/Creatinine Ratio 13.2 (8-20); Calcium 9.2 mg/dL (8.6-10.3); EGFR African American 121.9 (>60); EGFR Non-African American 100.7 (>60); Potassium 3.7 mmol/L (3.5-5.0)
[2019-09-16 22:13] VITALS: BP 147/109
== END 2019-09-16 22:05 | disposition home or self-care (01) ==
LOC: ED 20:29
DX: R07.9 Chest pain, unspecified (principal); I10 Essential (primary) hypertension; F41.9 Anxiety disorder, unspecified; R55 Syncope and collapse
CPT/HCPCS: 36415; 80048; 84484; 85025; 93005; 99282

== ENCOUNTER 2020-01-27 18:29 | Emergency (ER) | payer OTHER ==
--- NOTE | 2020-01-27 18:40 | ED ---
Complex/Multi-Sys Presentation - HPI Summary HPI Summary: 24 y/o M with hx anxiety [facility]/tightness starting 0200 today. Patient was feeling anxious this afternoon. Mother was taking his blood pressure as he was sitting down on the couch when he suddenly laid back and had syncopal episode which lasted for 20-40 seconds. He reportedly had jerky movements during this syncopal episode as well. He has passed out before in the past. After patient woke up, he was feeling fine for 20 minutes when he started feeling anxious again. He called his primary care provider who referred patient to the ED to r/o seizure. No hx seizures. He has never been seen by neurology. No FHx seizures. Patient denies tongue bitting, urinary incontinence, fever, cough, shortness of breath. Symptoms aggravated by nothing. Symptoms alleviated by nothing. Medications reviewed. Patient is not taking daily psychiatric medications. He has taken anxiety medications in the past but he had side effects then so he stopped taking it. He is prescribed diazepam. He took diazepam 2 mg 1 hour ago prior to arrival. He still feels weight in his chest. Allergies noted. - History Of Current Complaint Chief Complaint: EDSeizure Time Seen by Provider: 01/27/20 18:38 Hx Obtained From: Patient Onset/Duration: Lasting Hours, Still Present Timing: Intermittent, Lasting: Aggravating Factor(s): Nothing Alleviating Factor(s): Nothing - Allergies/Home Medications Allergies/Adverse Reactions: Allergies Allergy/AdvReac Type Severity Reaction Status Date / Time cefaclor [From [facility]] Allergy Rash Verified 01/27/20 18:37 onion Allergy Swelling Verified 01/27/20 18:37 Of Face,Lips,& Throat Home Medications: Home Medications Losartan/HCTZ 100/25 (NF) [Hyzaar 100/25 (NF)] 1 tab PO DAILY 01/27/20 [History Confirmed 01/27/20] PMH/Surg Hx/FS Hx/Imm Hx Endocrine/Hematology History: Denies: Hx Anticoagulant Therapy, Hx Diabetes, Hx Thyroid Disease Cardiovascular History: Reports: Hx Hypertension, Other Cardiovascular Problems/ Disorders - pvc Denies: Hx Deep Vein Thrombosis, Hx Myocardial Infarction Respiratory History: Reports: Hx Asthma - as a child Denies: Hx Chronic Obstructive Pulmonary Disease (COPD), Hx Pneumonia, Hx Pulmonary Embolism GI History: Denies: Other GI Disorders History: Denies: Hx Kidney Stones Psychiatric History: Reports: Hx Anxiety - He does not take medication for it. - Surgical History Surgery Procedure, Year, and Place: Tooth surgery Infectious Disease History: No Infectious Disease History: Denies: History Other Infectious Disease, Traveled Outside the [place] in Last 30 Days - Family History Known Family History: Positive: Hypertension Negative: Cardiac Disease - Social History Alcohol Use: None Hx Substance Use: No Substance Use Type: Reports: None Hx Tobacco Use: No Smoking Status (MU): Never Smoked Tobacco Review of Systems Negative: Fever ENT: Negative - tongue biting Positive: Other - chest pressure/tightness Negative: Shortness Of Breath, Cough Negative: incontinence Positive: Syncope Positive: Anxious All Other Systems Reviewed And Are Negative: Yes Physical Exam - Summary Physical Exam Summary: Constitutional: Well-developed, Well-nourished, Alert. (-) Distressed Skin: Warm, Dry HENT: Normocephalic; Atraumatic Eyes: Conjunctiva normal Neck: Musculoskeletal ROM normal neck. (-) JVD, (-) Stridor, (-) Nuchal rigidity Cardio: Rhythm regular, rate normal, Heart sounds normal; Intact distal pulses; Radial pulses are 2+ and symmetric. (-) Murmur Pulmonary/Chest wall: Effort normal. (-) Respiratory distress, (-) Wheezes, (-) Rales Abd: Soft, (-) tenderness, (-) Distension, (-) Guarding, (-) Rebound Musculoskeletal: (-) Edema Lymph: (-) Cervical adenopathy Neuro: Alert, Oriented x3. GCS 15. Psych: Mood and affect Normal Triage Information Reviewed: Yes Vital Signs On Initial Exam: Initial Vitals Temp Pulse Resp BP Pulse Ox 98.5 F 109 16 153/103 99 01/27/20 18:32 01/27/20 18:32 01/27/20 18:32 01/27/20 18:32 01/27/20 18:32 Vital Signs Reviewed: Yes Procedures - Sedation Patient Received Moderate/Deep Sedation with Procedure: No Diagnostics - Vital Signs Vital Signs Temp Pulse Resp BP Pulse Ox 01/27/20 18:32 98.5 F 109 16 153/103 99 - Laboratory Result Diagrams: 01/27/20 18:48 01/27/20 18:48 Lab Statement: Any lab studies that have been ordered have been reviewed, and results considered in the medical decision making process. - Radiology CXR Radiology Interpretation Completed By: ED Physician - No acute process. Pending official report. - CT Brain CT Interpretation Completed By: Radiologist - IMPRESSION: Left parietal superficial contusion. No traumatic intracranial abnormalities. ED physician has reviewed this imaging report. - EKG 1843 Cardiac Rate: NL - 94 BPM EKG Rhythm: Sinus Rhythm Summary of EKG Findings: An EKG at 1843 reveals normal sinus rhythm 94 BPM. No STEMI. T wave inversion in 3. ED physician has reviewed and interpreted this EKG. Complex Multi-Symp Course/Dx Course Of Treatment: 24-year-old male history anxiety presents with possible syncopal episode. - Normal neuro exam, PCP concern for possible seizure-like activity, and history this is more consistent with a syncopal episode possible jerking movements. No tongue biting, bowel or bladder incontinence, postictal period. Head CT unremarkable. Suspect syncope in setting of anxiety. Follow-up with his PCP regarding this. - Regarding intermittent chest pain. Patient relates this to anxiety, EKG unremarkable, troponin negative, chest x-ray unremarkable. Heart score 0. - Diagnoses Provider Diagnoses: Chest pain, Syncope Discharge ED - Sign-Out/Discharge Documenting (check all that apply): Patient Departure - Discharge Plan Condition: Stable Disposition: HOME Patient Education Materials: Syncope (ED), Anxiety (ED) Referrals: Cristino Markham DO [Primary Care Provider] - Additional Instructions: You were seen in the emergency department for concern over a possible seizure. Please follow-up with your primary care doctor who can refer you to a neurologist to further workup is warranted. Please take a shower and do not take a bath, do not swim alone. Do not drive or operate machinery. Please continue taking medications as prescribed and follow-up with your doctor in the next 1-2 days. Please return to emergency department for continued seizures, or if you're concerned - Billing Disposition and Condition Condition: STABLE Disposition: Home - Attestation Statements Document Initiated by Scribe: Yes Documenting Scribe: Chitra Cantu Provider For Whom Ced is Documenting (Include Credential): Jose Luis Ch MD Scribe Attestation: IChitra, scribed for Jose Luis Ch MD on 01/27/20 at 2005. Scribe Documentation Reviewed: Yes Provider Attestation: The documentation as recorded by the scribe, Chitra Cantu accurately reflects the service I personally performed and the decisions made by me, Jose Luis Ch MD Status of Scribe Document: Viewed
[2020-01-27 18:56] LABS: ABS Basophils 0.1 10^3/ul (0-0.2); ABS Eosinophils 0.2 10^3/ul (0-0.6); ABS Lymphocytes 2.1 10^3/ul (1.0-4.8); ABS Monocytes 0.5 10^3/ul (0-0.8); ABS Neutrophils 7.3 10^3/ul (1.5-7.7); Eosinophil % 1.6 %; Hematocrit 46 % (42-52); Hemoglobin 16.7 g/dL (14.0-18.0); Lymphocyte % 20.6 %; Mean Corpuscular HGB Conc 36 g/dL (31-36); Mean Corpuscular Hemoglobin 32 pg (27-31); Mean Corpuscular Volume 87 fL (80-94); Mean Platelet Volume 7.8 fL (7.4-10.4); Platelet Count 242 10^3/uL (150-450); Red Blood Count 5.32 10^6 /uL (4.18-5.48); Red Cell Distribution Width 13 % (10-15); White Blood Count 10.1 10^3/uL (3.5-10.8)
[2020-01-27 19:11] LABS: Albumin 4.5 g/dL (3.2-5.2); Albumin/Globulin Ratio 1.5 (1-3); BUN/Creatinine Ratio 10.4 (8-20); Calcium 9.8 mg/dL (8.6-10.3); EGFR African American 114.6 (>60); EGFR Non-African American 94.7 (>60); Globulin 3.1 g/dL (2-4); Potassium 3.7 mmol/L (3.5-5.0); Total Bilirubin 1.1 mg/dL (0.2-1.0); Total Protein 7.6 g/dL (6.4-8.9)
[2020-01-27 20:28] VITALS: BP 149/77
== END 2020-01-27 20:27 | disposition home or self-care (01) ==
LOC: ED 18:29
DX: R07.9 Chest pain, unspecified (principal); R55 Syncope and collapse; I10 Essential (primary) hypertension; F41.9 Anxiety disorder, unspecified; Z88.8 Allergy status to other drugs, medicaments and biological substances; Z86.79 Personal history of other diseases of the circulatory system; Z79.899 Other long term (current) drug therapy
CPT/HCPCS: 36415; 70450; 71046; 80053; 84484; 85025; 93005; 99282